=== PATIENT | male | born 2000 | race Caucasian/White ===

== ENCOUNTER 2022-02-26 11:54 | Emergency (ER) | payer OTHER ==
[~2022-02-26] VITALS: Ht 177.8 cm; Wt 124.7 kg
[2022-02-26 12:00] VITALS: BP_SYST 142
[2022-02-26] MEDS ORDERED: IPRATROPIUM BROM 0.5 MG/2.5 ML VIAL.NEB (ATROVENT) INH ONE ×2 (12:00→12:08)
[2022-02-26] MEDS ORDERED: ALBUTEROL SULFATE 0.083% 2.5 MG/3 ML VIAL.NEB INH ONE ×2 (12:00→12:08)
--- NOTE | 2022-02-26 12:00 | NUR ---
Placed in room 04 . Placed on lavatory attendant, blood pressure machine and pulse oximeter. To gown for exam. Side rails up. Report given to DONTA ANTONY.
--- NOTE | 2022-02-26 12:03 | NUR ---
PT BIB SELF AWAKE AND ALERT AOX4. NO SOB OR DISTRESS. PT C/O FLU LIKE SYMPTOM FOR 5 DAYS. COUGH AND BODYACHE. PT STATES HE HAD ONE EPISODE OF VOMITING LAST NIGHT. DENIES OTHER PAIN.
--- NOTE | 2022-02-26 12:09 | NUR ---
MD DR GODWIN AT BEDSIDE
[2022-02-26] MEDS ORDERED: PRED20TA PO (14:40)
[2022-02-26] MEDS ORDERED: ALBMDI INH (14:40)
[2022-02-26] MEDS ORDERED: ALBU2.5V7 INH (14:40)
[2022-02-26 14:56] VITALS: BP_SYST 142
--- NOTE | 2022-02-26 14:58 | NUR ---
Patient given written and verbal discharge instructions and verbalizes understanding. ER MD DR GODWIN discussed with patient the results and treatment provided. Patient in stable condition. ID arm band removed. Rx of ALBUTEROL AND PREDNISONE given. Patient educated on pain management and to follow up with PMD. Pain Scale 0/10. Opportunity for questions provided and answered. Medication side effect fact sheet provided.
== END 2022-02-26 14:58 | disposition home or self-care (01) ==
LOC: SED 11:54
DX: J45.909 Unspecified asthma, uncomplicated (principal); R05.9 Cough, unspecified; R06.02 Shortness of breath; R09.81 Nasal congestion; Z79.899 Other long term (current) drug therapy
CPT/HCPCS: 36415; 71045; 94640; 94760; 99284; 87804 ×2; J7613

== ENCOUNTER 2022-09-21 15:32 | Emergency (ER) | payer OTHER ==
[~2022-09-21] VITALS: Ht 180.3 cm; Wt 127.0 kg
[~2022-09-21 15:32] MED LIST: ALBMDI INH; ALBU2.5V7 INH; PRED20TA PO
[2022-09-21 15:35] VITALS: BP_SYST 150
--- NOTE | 2022-09-21 15:40 | NUR ---
Patient to ER chair 1 for evaluation. Report given to DONTA Marquez
--- NOTE | 2022-09-21 15:42 | NUR ---
Pt brought by self, A&Ox4, pt presents to ER with rash on bilateral flank areas , skin pink and warm, cap refill <3, VSS.
--- NOTE | 2022-09-21 15:50 | NUR ---
Dr Cutler evaluating patient at bedside
[2022-09-21] MEDS ORDERED: DOXY100C5 PO (15:55)
[2022-09-21] MEDS ORDERED: CHLO118L TP (15:55)
[2022-09-21 16:00] VITALS: BP_SYST 150
--- NOTE | 2022-09-21 16:01 | NUR ---
Patient given written and verbal discharge instructions and verbalizes understanding. ER MD discussed with patient the results and treatment provided. Patient in stable condition. ID arm band removed. Rx of Hibiclens and Doxycycline given. Patient educated on pain management and to follow up with PMD. Pain Scale 0. Opportunity for questions provided and answered. Medication side effect fact sheet provided.
== END 2022-09-21 17:18 | disposition home or self-care (01) ==
LOC: SED 15:32
DX: L73.9 Follicular disorder, unspecified (principal); R21 Rash and other nonspecific skin eruption; J45.909 Unspecified asthma, uncomplicated; Z79.899 Other long term (current) drug therapy
CPT/HCPCS: 99283

== ENCOUNTER 2023-01-04 12:04 | Emergency (ER) | payer OTHER ==
[~2023-01-04] VITALS: Ht 162.6 cm; Wt 81.6 kg
[~2023-01-04 12:04] MED LIST changes: +CHLO118L TP; +DOXY100C5 PO
[2023-01-04 12:12] VITALS: BP_SYST 108; PULSE 118; RESP 20; TEMP 97.6; O2SAT 97
[2023-01-04] MEDS ORDERED: ALBUTEROL SULFATE 0.083% 2.5 MG/3 ML VIAL.NEB INH ONE (12:30)
[2023-01-04] MEDS ORDERED: IPRATROPIUM BROM 0.5 MG/2.5 ML VIAL.NEB (ATROVENT) INH ONE (12:30)
[2023-01-04] MEDS ORDERED: predniSONE 20 MG TABLET PO ONE (12:30)
[2023-01-04 12:45] VITALS: TEMP 99.8
[2023-01-04] MEDS ORDERED: PRED20TA PO (14:21)
[2023-01-04 14:25] LABS: INFLUENZA TYPE A negative (NEGATIVE); INFLUENZA TYPE B NEGATIVE (NEGATIVE)
[2023-01-04 14:35] VITALS: BP_SYST 155; PULSE 113; O2SAT 97
[2023-01-05] MEDS ORDERED: ALBMDI INH (13:41)
== END 2023-01-04 14:34 | disposition home or self-care (01) ==
LOC: SED 12:04
DX: J40 Bronchitis, not specified as acute or chronic (principal); R05.9 Cough, unspecified; R06.2 Wheezing; Z79.899 Other long term (current) drug therapy; Z20.822 Contact with and (suspected) exposure to COVID-19
CPT/HCPCS: 99284; 71045; 87426; 36415; 94640; 87804 ×2; J7512